=== PATIENT | male | born 1950 | race Caucasian/White ===

== ENCOUNTER 2019-01-20 14:48 | Inpatient (IN) | payer MEDICARE, MEDICAID ==
[~2019-01-20] VITALS: Ht 177.8 cm; Wt 98.9 kg
[2019-01-20] VITALS (8 sets, daily range): BP systolic 92–127; BP diastolic 43–101
[~2019-01-20 14:48] MED LIST: ALBU2.5V13 NAS; ASPI-1158 PO; ATOR10TA69 PO; BENA5TAB6 PO; BUME2TAB3 MT; CARV6.2548 PO; CLOT15CR8 TOP; DOCU-276 PO; FLUT16SP15 INH; FLUT1DIS3 INH; FURO40TA5 PO; ISON300T19 PO; LEVO75TA7 PO; LORA-1083 PO; MIRT-91 PO; OMEP20CA4 PO; PHEN100C12 PO; Rifampin; Rifampin PO; SERT50TA12 PO; TIOT18CA3 INH; TOPI100T37 INH; VALP250S4 PO
[2019-01-20] MEDS ORDERED: SODIUM CHLORIDE 0.9% 1,000 ML IV ONE (15:30)
[2019-01-20 15:51] LABS: BASOPHILS % 0.6 % (0.0-2.0); EOSINOPHILS % 1.4 % (0.0-5.0); HEMATOCRIT. 41.1 % (42.0-52.0); HEMOGLOBIN. 13.8 g/dL (14.0-18.0); LYMPHOCYTES % 17.1 % (20.0-50.0); MEAN CORPUSCULAR HEMOGLOBIN 29.3 pg (28.0-32.0); MEAN PLATELET VOLUME 7.6 fl (7.4-10.4); MONOCYTES % 12.9 % (2.0-8.0); PLATELET 236 x1000/uL (130-400); RED BLOOD CELL COUNT 4.72 mill/uL (4.7-6.1); RED CELL DISTRIBUTION WIDTH 14.9 % (11.6-14.6)
[2019-01-20 15:56] LABS: CHLORIDE 102 mEq/L (98-107)
[2019-01-20 15:57] LABS: PROTHROMBIN TIME 10.3 sec (9.6-11.0)
[2019-01-20 16:00] LABS: ETHANOL BLOOD < 10 mg/dL
[2019-01-20 16:05] LABS: CREATINE KINASE 111 IU/L (39-308)
[2019-01-20] MEDS ORDERED: PHENYTOIN SODIUM 1,000 MG in SODIUM CHLORIDE 0.9% 100 ML IV ONE (17:15)
[2019-01-20] MEDS ORDERED: LORAZEPAM 2MG/ML CPJ IV ONE (17:15)
[2019-01-20 17:40] LABS: CARBAMAZEPINE < 0.5 ug/mL (4-12); PHENOBARBITAL < 2.1 ug/mL (15.0-40.0)
[2019-01-20] MEDS ORDERED: LORAZEPAM 2MG/ML CPJ IV PRN (21:30)
[2019-01-20] MEDS ORDERED: DEXTROSE 50% WATER 50ML SYRINGE IV PRN (21:30)
[2019-01-20] MEDS: SODIUM CHLORIDE 0.9% 1,000 ML IV SCH (22:11)
[2019-01-21] VITALS (19 sets, daily range): BP systolic 93–131; BP diastolic 55–83
[2019-01-21 05:20] LABS: BASOPHILS % 0.5 % (0.0-2.0); EOSINOPHILS % 1.5 % (0.0-5.0); HEMATOCRIT. 41.3 % (42.0-52.0); HEMOGLOBIN. 13.4 g/dL (14.0-18.0); LYMPHOCYTES % 28.3 % (20.0-50.0); MEAN CORPUSCULAR HEMOGLOBIN 28.5 pg (28.0-32.0); MEAN CORPUSCULAR VOLUME 88.2 fL (80.0-94.0); MEAN PLATELET VOLUME 8.2 fl (7.4-10.4); MONOCYTES % 14.4 % (2.0-8.0); NEUTROPHILS % 55.3 % (40.0-76.0); PLATELET 237 x1000/uL (130-400); RED BLOOD CELL COUNT 4.68 mill/uL (4.7-6.1); RED CELL DISTRIBUTION WIDTH 14.6 % (11.6-14.6)
[2019-01-21 05:25] LABS: CHLORIDE 105 mEq/L (98-107)
[2019-01-21] MEDS: INSULIN LISPRO 100 UNITS/ML SUBCUT SCH ×4 (07:50→21:00)
[2019-01-21] MEDS: BLOOD SUGAR DIAGNOSTIC STRIP TEST SCH ×4 (07:50→21:30)
[2019-01-21] MEDS ORDERED: MIRA50TA PO (09:30)
[2019-01-21] MEDS ORDERED: SPIR25TA6 PO (09:30)
[2019-01-21] MEDS ORDERED: GLIP2.5T3 PO (09:30)
[2019-01-21] MEDS ORDERED: ATOR40TA70 PO (09:30)
[2019-01-21] MEDS ORDERED: OMEP20TA2 PO (09:31)
[2019-01-21] MEDS ORDERED: ASPI-1159 PO (09:31)
[2019-01-21] MEDS ORDERED: CARV3.1242 PO (09:31)
[2019-01-21] MEDS ORDERED: XALAO EACHEYE (09:31)
[2019-01-21] MEDS ORDERED: SENN1TAB8 PO (09:31)
[2019-01-21] MEDS ORDERED: HYDR-3735 GT (09:31)
[2019-01-21] MEDS ORDERED: MIRT30TA PO (09:31)
[2019-01-21] MEDS ORDERED: POTA20TA82 PO (09:31)
[2019-01-21] MEDS ORDERED: FINA5TAB3 PO (09:31)
[2019-01-21] MEDS ORDERED: LEVO112T7 PO (09:31)
[2019-01-21] MEDS ORDERED: LACO100T2 PO (09:31)
[2019-01-21] MEDS: ASPIRIN 81MG TABLET PO SCH (10:32)
[2019-01-21] MEDS: FAMOTIDINE 20MG/2ML VIAL IV SCH (10:32)
[2019-01-21] MEDS: LEVOTHYROXINE SODIUM 112MCG TABLET PO SCH (10:32)
[2019-01-21] MEDS: SODIUM CHLORIDE 0.9% 1,000 ML IV SCH (10:32)
[2019-01-21] MEDS: POTASSIUM CHLORIDE 20MEQ TABLET SR PO SCH ×2 (10:32→21:40)
[2019-01-21] MEDS: CARVEDILOL 3.125 MG TABLET PO SCH ×2 (10:33→21:41)
[2019-01-21] MEDS: BUMETANIDE 1MG TABLET PO SCH ×2 (11:00→21:56)
[2019-01-21] MEDS: GLIPIZIDE XL 2.5MG TABLET PO SCH (13:49)
[2019-01-21] MEDS ORDERED: ATORVASTATIN CALCIUM 40MG TABLET PO SCH (21:00)
[2019-01-21] MEDS ORDERED: PHENYTOIN SODIUM EXTENDED 100MG CAPSULE PO SCH (21:00)
[2019-01-21] MEDS: LATANOPROST 0.005% OPHTH DROPS 2.5ML EACHEYE SCH ×2 (21:00→22:17)
[2019-01-22 04:00] VITALS: BP 104/68
[2019-01-22] MEDS: BLOOD SUGAR DIAGNOSTIC STRIP TEST SCH ×2 (07:22→12:40)
[2019-01-22] MEDS: INSULIN LISPRO 100 UNITS/ML SUBCUT SCH ×2 (07:23→13:10)
[2019-01-22 08:00] VITALS: BP 102/67
[2019-01-22] MEDS: POTASSIUM CHLORIDE 20MEQ TABLET SR PO SCH (09:13)
[2019-01-22] MEDS: BUMETANIDE 1MG TABLET PO SCH (09:13)
[2019-01-22] MEDS: LEVOTHYROXINE SODIUM 112MCG TABLET PO SCH (09:13)
[2019-01-22] MEDS: ASPIRIN 81MG TABLET PO SCH (09:13)
[2019-01-22] MEDS: GLIPIZIDE XL 2.5MG TABLET PO SCH (09:14)
[2019-01-22] MEDS: CARVEDILOL 3.125 MG TABLET PO SCH (09:14)
[2019-01-22] MEDS: FAMOTIDINE 20MG/2ML VIAL IV SCH (09:14)
[2019-01-22 12:00] VITALS: BP 109/68
[2019-01-22 16:00] VITALS: BP 104/64
[2019-01-22 17:30] VITALS: BP 111/74
[2019-01-22] MEDS ORDERED: PHEN100C4 MT (17:48)
[2019-01-22] MEDS ORDERED: PHEN100C4 PO (17:56)
== END 2019-01-22 19:30 | disposition home or self-care (01) | DRG 101 ==
LOC: ER 14:48 → CVICU 19:28 → ENRESERV 19:34 → EDBEDREQTM 19:36 → EDBEDREQ 19:36 → 7WST 01-21 11:20
PROVIDERS: ADMIT Internal Medicine; ATTEND Internal Medicine
DX: G40.901 Epilepsy, unspecified, not intractable, with status epilepticus (principal); I69.354 Hemiplegia and hemiparesis following cerebral infarction affecting left non-dominant side; E11.9 Type 2 diabetes mellitus without complications; I10 Essential (primary) hypertension; K74.60 Unspecified cirrhosis of liver; E78.5 Hyperlipidemia, unspecified; E78.00 Pure hypercholesterolemia, unspecified; H54.62 Unqualified visual loss, left eye, normal vision right eye; J45.909 Unspecified asthma, uncomplicated; F32.9 Major depressive disorder, single episode, unspecified; R26.2 Difficulty in walking, not elsewhere classified; Z88.8 Allergy status to other drugs, medicaments and biological substances; Z79.82 Long term (current) use of aspirin; Z86.011 Personal history of benign neoplasm of the brain; Z91.14 Patient's other noncompliance with medication regimen; Z79.899 Other long term (current) drug therapy
CPT/HCPCS: 36415; 70551; 71045; 80048; 80156; 80165; 80184; 80185; 80320; 82140; 82550; 82962; 83605; 84484; 93005; 93970; J1165; J2060; J3490; J7030; J7050; G0480

== ENCOUNTER 2019-06-27 01:17 | Emergency (ER) | payer MEDICARE, MEDICAID ==
[~2019-06-27] VITALS: Ht 177.8 cm; Wt 93.0 kg
[~2019-06-27 01:17] MED LIST changes: -ALBU2.5V13 NAS; -ASPI-1158 PO; +ASPI-1393 PO; -ATOR10TA69 PO; +ATOR40TA70 PO; -BENA5TAB6 PO; -BUME2TAB3 MT; +BUME2TAB7 MT; +CARV3.1242 PO; -CARV6.2548 PO; -CLOT15CR8 TOP; -DOCU-276 PO; +FINA5TAB3 PO; -FLUT16SP15 INH; -FURO40TA5 PO; +GLIP2.5T3 PO; +HYDR-3735 GT; -ISON300T19 PO; +LACO100T2 PO; +LEVO112T7 PO; -LEVO75TA7 PO; -LORA-1083 PO; +MIRA50TA PO; -MIRT-91 PO; +MIRT30TA PO; -OMEP20CA4 PO; +OMEP20TA2 PO; -PHEN100C12 PO; +PHEN100C4 MT; +PHEN100C4 PO; +POTA20TA82 PO; -Rifampin; -Rifampin PO; +SENN-251 PO; -SERT50TA12 PO; +SPIR25TA6 PO; -TOPI100T37 INH; +XALAO EACHEYE
[2019-06-27] MEDS ORDERED: ASPIRIN 81MG TABLET PO ONE (03:45)
[2019-06-27 04:00] LABS: BASOPHILS % 0.7 % (0.0-2.0); EOSINOPHILS % 1.1 % (0.0-5.0); HEMATOCRIT. 39.7 % (42.0-52.0); HEMOGLOBIN. 13.1 g/dL (14.0-18.0); LYMPHOCYTES % 18.8 % (20.0-50.0); MEAN CORPUSCULAR VOLUME 87.5 fL (80.0-94.0); MEAN PLATELET VOLUME 7.8 fl (7.4-10.4); NEUTROPHILS % 67.4 % (40.0-76.0); PLATELET 230 x1000/uL (130-400); RED BLOOD CELL COUNT 4.54 mill/uL (4.7-6.1); RED CELL DISTRIBUTION WIDTH 14.3 % (11.6-14.6)
[2019-06-27 04:07] LABS: CHLORIDE 102 mEq/L (98-107)
[2019-06-27] MEDS ORDERED: HYDROCODONE/ACETAMINOPHEN 5/325MG TABLET PO ONE (05:45)
[2019-06-27 10:11] LABS: CLARITY URINE CLEAR (CLEAR); COLOR URINE YELLOW (YELLOW); KETONES URINE NEGATIVE (NEGATIVE); LEUKOCYTE ESTERASE URINE NEGATIVE (NEGATIVE); NITRITE URINE NEGATIVE (NEGATIVE); OCCULT BLOOD URINE NEGATIVE (NEGATIVE); PH URINE 6.5 (4.5-8.0); PROTEIN URINE NEGATIVE (NEGATIVE); SPECIFIC GRAVITY URINE 1.015 (1.005-1.030)
[2019-06-27 13:35] VITALS: BP 115/78
== END 2019-06-27 18:09 | disposition left against medical advice (07) ==
LOC: ER 02:11 → CANBEDREQ 10:28 → ER 18:09
DX: R07.89 Other chest pain (principal); R10.84 Generalized abdominal pain; E11.9 Type 2 diabetes mellitus without complications; G40.909 Epilepsy, unspecified, not intractable, without status epilepticus; J44.9 Chronic obstructive pulmonary disease, unspecified; H54.62 Unqualified visual loss, left eye, normal vision right eye; Z86.011 Personal history of benign neoplasm of the brain; Z88.5 Allergy status to narcotic agent; Z79.82 Long term (current) use of aspirin
CPT/HCPCS: 36415; 71045; 74018; 81003; 83880; 84484; 93005; 99284

== ENCOUNTER 2020-12-08 05:49 | Emergency (ER) | payer MEDICARE, MEDICAID ==
[~2020-12-08] VITALS: Ht 167.6 cm; Wt 100.0 kg
[~2020-12-08 05:49] MED LIST changes: -ASPI-1393 PO; +ASPI-1497 PO; +MIRT-111 PO; -MIRT30TA PO
[2020-12-08 06:54] LABS: CHLORIDE 103 mEq/L (98-107)
[2020-12-08 07:00] LABS: ETHANOL BLOOD < 10 mg/dL
[2020-12-08 07:04] LABS: HEMATOCRIT. 38.4 % (42.0-52.0); HEMOGLOBIN. 12.2 g/dL (14.0-18.0); MEAN CORPUSCULAR HEMOGLOBIN 25.8 pg (28.0-32.0); MEAN CORPUSCULAR VOLUME 81.4 fL (80.0-94.0); RED BLOOD CELL COUNT 4.72 mill/uL (4.7-6.1); RED CELL DISTRIBUTION WIDTH 15.8 % (11.6-14.6)
[2020-12-08 07:42] LABS: PLATELET 197 x1000/uL (130-400); PLATELET ESTIMATE NORMAL
[2020-12-08 07:42] LABS: CLARITY URINE CLEAR (CLEAR); COLOR URINE YELLOW (YELLOW); KETONES URINE NEGATIVE (NEGATIVE); LEUKOCYTE ESTERASE URINE NEGATIVE (NEGATIVE); NITRITE URINE NEGATIVE (NEGATIVE); OCCULT BLOOD URINE NEGATIVE (NEGATIVE); PROTEIN URINE NEGATIVE (NEGATIVE); UROBILINOGEN URINE 0.2 E.U./dL (0.2-1.0)
[2020-12-08 07:54] LABS: *AMPHETAMINES SCREEN URINE NEGATIVE (NEGATIVE); *BARBITURATES SCREEN URINE NEGATIVE (NEGATIVE); *BENZODIAZEPINES SCREEN URINE PRESUMTIVE POSITIVE (NEGATIVE)
[2020-12-08 07:55] LABS: *COCAINE SCREEN URINE NEGATIVE (NEGATIVE); METHADONE URINE SCREEN NEGATIVE (NEGATIVE); OPIATES URINE SCREEN NEGATIVE (NEGATIVE); PHENCYCLIDINE URINE SCREEN NEGATIVE (NEGATIVE)
[2020-12-08 07:56] LABS: CANNABINOID URINE SCREEN NEGATIVE (NEGATIVE)
[2020-12-08] MEDS ORDERED: SODIUM CHLORIDE 0.9% 1,000 ML IV ONE (10:30)
[2020-12-08 13:00] VITALS: BP 131/88
== END 2020-12-08 13:43 | disposition left against medical advice (07) ==
LOC: ER 05:49
DX: R56.9 Unspecified convulsions (principal); E87.2 Acidosis; J45.909 Unspecified asthma, uncomplicated; I10 Essential (primary) hypertension; Z79.82 Long term (current) use of aspirin
CPT/HCPCS: 36415; 71045; 80053; 80305; 80320; 81003; 82140; 82962; 83605; 84443; 85025; 93005; 99285; J7030; G0480

== ENCOUNTER 2021-08-18 19:09 | Emergency (ER) | payer MEDICARE, MEDICAID ==
[~2021-08-18] VITALS: Ht 172.7 cm; Wt 82.0 kg
[2021-08-18] MEDS ORDERED: CYCL10TA7 MT (22:15)
[2021-08-18] MEDS ORDERED: KETOROLAC 60MG/2ML VIAL IM ONE (22:15)
[2021-08-18] MEDS ORDERED: IBUP-2028 MT (22:15)
[2021-08-19 00:03] VITALS: BP 145/79
== END 2021-08-19 00:05 | disposition home or self-care (01) ==
LOC: ER 19:09
DX: M54.50 Low back pain, unspecified (principal); G89.29 Other chronic pain; E11.9 Type 2 diabetes mellitus without complications; I10 Essential (primary) hypertension; J45.909 Unspecified asthma, uncomplicated; J44.9 Chronic obstructive pulmonary disease, unspecified; Z88.8 Allergy status to other drugs, medicaments and biological substances; Z88.5 Allergy status to narcotic agent
CPT/HCPCS: 72100; 96372; 99283; J1885

== ENCOUNTER 2022-04-16 00:20 | Inpatient (IN) | payer MEDICARE, MEDICAID ==
[2022-04-16] VITALS (22 sets, daily range): BP systolic 90–131; BP diastolic 34–81
[~2022-04-16] VITALS: Ht 172.7 cm; Wt 135.2 kg
[~2022-04-16 00:20] MED LIST changes: +CYCL10TA21 MT; +IBUP-2028 MT; -OMEP20TA2 PO; +OMEP20TA23 PO; +POTA-205 PO; -POTA20TA82 PO
[2022-04-16 00:58] LABS: BASOPHILS % 0.3 % (0.0-2.0); EOSINOPHILS % 0.6 % (0.0-5.0); HEMATOCRIT. 39.4 % (42.0-52.0); HEMOGLOBIN. 12.8 g/dL (14.0-18.0); LYMPHOCYTES % 34.3 % (20.0-50.0); MEAN CORPUSCULAR HEMOGLOBIN 28.1 pg (28.0-32.0); MEAN CORPUSCULAR VOLUME 86.4 fL (80.0-94.0); MONOCYTES % 9.5 % (2.0-8.0); NEUTROPHILS % 55.3 % (40.0-76.0); PLATELET 160 x1000/uL (130-400); RED BLOOD CELL COUNT 4.57 mill/uL (4.7-6.1); RED CELL DISTRIBUTION WIDTH 15.6 % (11.6-14.6)
[2022-04-16] MEDS ORDERED: SODIUM BICARBONATE 8.4% 1 MEQ/ML 50ML SYR IV ONE ×2 (01:00)
[2022-04-16] MEDS ORDERED: DOPAMINE 400MG/250ML PREMIX 250 ML IV ONE (01:00)
[2022-04-16] MEDS ORDERED: CALCIUM CHLORIDE 1GM/10ML SYR IV ONE (01:00)
[2022-04-16 01:24] LABS: CHLORIDE 108 mEq/L (98-107)
[2022-04-16] MEDS ORDERED: ONDANSETRON HCL 4MG/2ML INJ IV ONE (03:15)
[2022-04-16 03:39] LABS: INR 1.1; PARTIAL THROMBOPLASTIN TIME < 21.0 sec (23.4-31.0); PROTHROMBIN TIME 11.4 sec (9.6-11.0)
[2022-04-16] MEDS ORDERED: DOPAMINE 400MG/250ML PREMIX 250 ML IV STA (05:09)
[2022-04-16] MEDS ORDERED: EPINEPHRINE 5 MG in SODIUM CHLORIDE 0.9% 245 ML IV STA (05:09)
[2022-04-16] MEDS ORDERED: ACETAMINOPHEN 325MG TABLET PO PRN (05:15)
[2022-04-16] MEDS ORDERED: ONDANSETRON HCL 4MG/2ML INJ IV PRN (05:15)
[2022-04-16] MEDS ORDERED: HYDROCODONE/ACETAMINOPHEN 5/325MG TABLET PO PRN (05:15)
[2022-04-16] MEDS ORDERED: MAGNESIUM/ALUMINUM HYDROXIDE/SIMETHICONE 30ML UDC PO PRN (05:15)
[2022-04-16] MEDS ORDERED: DOCUSATE SODIUM 100MG CAPSULE PO PRN (05:15)
[2022-04-16] MEDS ORDERED: GUAIFENESIN 200MG/10ML SUGAR FREE UDC PO PRN (05:15)
[2022-04-16] MEDS ORDERED: NALOXONE HCL 0.4MG/ML VIAL IV PRN (05:30)
[2022-04-16] MEDS: SODIUM CHLORIDE 0.45% 1,000 ML IV SCH ×2 (05:36→17:11)
[2022-04-16] MEDS ORDERED: EPINEPHRINE 5 MG in SODIUM CHLORIDE 0.9% 245 ML IV NR (06:15)
[2022-04-16] MEDS ORDERED: MIDAZOLAM HCL 2 MG/2 ML VIAL ONE (07:28)
[2022-04-16] MEDS ORDERED: LIDOCAINE HCL/PF 2% 20MG/ML 5 ML/VIAL ONE (07:29)
[2022-04-16] MEDS ORDERED: FENTANYL CITRATE/PF 50MCG/ML 2ML VIAL ONE (07:29)
[2022-04-16] MEDS ORDERED: ATROPINE SULFATE 1MG/10ML SYR ONE (07:31)
[2022-04-16] MEDS ORDERED: ATROPINE SULFATE 1MG/10ML SYR IV PRN (08:15)
[2022-04-16] MEDS ORDERED: IPRATROPIUM/ALBUTEROL 0.5-3(2.5)MG/3ML NEB HHN PRN (12:45)
[2022-04-16] MEDS: ENOXAPARIN 40MG/0.4ML SYR SUBCUT SCH (17:10)
[2022-04-16] MEDS: LEVOTHYROXINE SODIUM 112MCG TABLET PO SCH (17:10)
[2022-04-16] MEDS: PHENYTOIN SODIUM EXTENDED 100MG CAPSULE PO SCH ×2 (17:10→17:13)
[2022-04-16] MEDS: LATANOPROST 0.005% OPHTH DROPS 2.5ML EACHEYE SCH (21:21)
[2022-04-16] MEDS: FINASTERIDE 5MG TABLET PO SCH (21:21)
[2022-04-17] VITALS (63 sets, daily range): BP systolic 78–164; BP diastolic 19–117
[2022-04-17] MEDS: SODIUM CHLORIDE 0.45% 1,000 ML IV SCH (05:39)
[2022-04-17 06:14] LABS: BASOPHILS % 0.2 % (0.0-2.0); EOSINOPHILS % 0.7 % (0.0-5.0); HEMATOCRIT. 35.3 % (42.0-52.0); HEMOGLOBIN. 11.8 g/dL (14.0-18.0); LYMPHOCYTES % 24.1 % (20.0-50.0); MEAN CORPUSCULAR HEMOGLOBIN 28.3 pg (28.0-32.0); MEAN CORPUSCULAR VOLUME 84.6 fL (80.0-94.0); MEAN PLATELET VOLUME 9.3 fl (7.4-10.4); MONOCYTES % 12.9 % (2.0-8.0); NEUTROPHILS % 62.1 % (40.0-76.0); PLATELET 141 x1000/uL (130-400); RED BLOOD CELL COUNT 4.17 mill/uL (4.7-6.1); RED CELL DISTRIBUTION WIDTH 15.9 % (11.6-14.6)
[2022-04-17 06:34] LABS: CHLORIDE 101 mEq/L (98-107)
[2022-04-17] MEDS ORDERED: MIDAZOLAM HCL 2 MG/2 ML VIAL ONE ×2 (07:43→08:30)
[2022-04-17] MEDS ORDERED: IODIXANOL 320MG/ML 100 ML BOTTLE IV ONE (07:44)
[2022-04-17] MEDS ORDERED: LIDOCAINE HCL/PF 2% 20MG/ML 5 ML/VIAL ONE (07:44)
[2022-04-17] MEDS ORDERED: FENTANYL CITRATE/PF 50MCG/ML 2ML VIAL ONE ×2 (07:45→08:30)
[2022-04-17] MEDS ORDERED: GENTAMICIN/NS IRRIGATION 500 ML IR ONE (07:48)
[2022-04-17] MEDS ORDERED: CEFAZOLIN 1000MG PREMIX 50 ML IV ONE ×2 (07:52→07:54)
[2022-04-17] MEDS: ENOXAPARIN 40MG/0.4ML SYR SUBCUT SCH (09:00)
[2022-04-17] MEDS: FUROSEMIDE 40MG/4ML VIAL IVP SCH (10:47)
[2022-04-17] MEDS: PHENYTOIN SODIUM EXTENDED 100MG CAPSULE PO SCH ×3 (10:47→17:24)
[2022-04-17] MEDS: LEVOTHYROXINE SODIUM 112MCG TABLET PO SCH (10:48)
[2022-04-17] MEDS: ATORVASTATIN CALCIUM 40MG TABLET PO SCH (10:48)
[2022-04-17] MEDS: SPIRONOLACTONE 25MG TABLET PO SCH (10:48)
[2022-04-17] MEDS: CEFAZOLIN 1000MG PREMIX 50 ML IV SCH ×2 (13:12→21:32)
[2022-04-17] MEDS: POTASSIUM CHLORIDE 20MEQ TABLET SR PO SCH (13:13)
[2022-04-17] MEDS ORDERED: CEFAZOLIN SODIUM 1000MG/VIAL IV SCH (14:00)
[2022-04-17] MEDS ORDERED: PHENYTOIN SODIUM 500 MG in SODIUM CHLORIDE 0.9% 50 ML IV NR (14:30)
[2022-04-17] MEDS: FINASTERIDE 5MG TABLET PO SCH (21:32)
[2022-04-17] MEDS: ACETAMINOPHEN 325MG TABLET PO PRN (21:32)
[2022-04-17] MEDS: LATANOPROST 0.005% OPHTH DROPS 2.5ML EACHEYE SCH (21:33)
[2022-04-18] VITALS (45 sets, daily range): BP systolic 77–140; BP diastolic 37–84
[2022-04-18] MEDS: PHENYTOIN SODIUM EXTENDED 100MG CAPSULE PO SCH ×3 (01:08→22:05)
[2022-04-18] MEDS: SODIUM CHLORIDE 0.45% 1,000 ML IV SCH ×2 (01:13→10:35)
[2022-04-18] MEDS: CEFAZOLIN 1000MG PREMIX 50 ML IV SCH ×3 (04:18→22:07)
[2022-04-18] MEDS: TRAMADOL 50MG TABLET PO PRN ×2 (06:51→22:07)
[2022-04-18] MEDS: POTASSIUM CHLORIDE 20MEQ TABLET SR PO SCH (08:31)
[2022-04-18] MEDS: ENOXAPARIN 40MG/0.4ML SYR SUBCUT SCH ×2 (08:31→22:06)
[2022-04-18] MEDS: FUROSEMIDE 40MG/4ML VIAL IVP SCH (08:31)
[2022-04-18] MEDS: ATORVASTATIN CALCIUM 40MG TABLET PO SCH (08:31)
[2022-04-18] MEDS: LEVOTHYROXINE SODIUM 112MCG TABLET PO SCH (08:32)
[2022-04-18] MEDS: SPIRONOLACTONE 25MG TABLET PO SCH (08:38)
[2022-04-18] MEDS: SODIUM CHLORIDE 0.9% 1,000 ML IV SCH (18:56)
[2022-04-18] MEDS: LATANOPROST 0.005% OPHTH DROPS 2.5ML EACHEYE SCH (22:05)
[2022-04-18] MEDS: FINASTERIDE 5MG TABLET PO SCH (22:07)
[2022-04-19] VITALS (17 sets, daily range): BP systolic 77–137; BP diastolic 40–78
[2022-04-19] MEDS: CEFAZOLIN 1000MG PREMIX 50 ML IV SCH (03:36)
[2022-04-19] MEDS: FUROSEMIDE 40MG/4ML VIAL IVP SCH (08:17)
[2022-04-19] MEDS: PHENYTOIN SODIUM EXTENDED 100MG CAPSULE PO SCH (08:17)
[2022-04-19] MEDS: POTASSIUM CHLORIDE 20MEQ TABLET SR PO SCH (08:17)
[2022-04-19] MEDS: LEVOTHYROXINE SODIUM 112MCG TABLET PO SCH (08:17)
[2022-04-19] MEDS: ATORVASTATIN CALCIUM 40MG TABLET PO SCH (08:18)
[2022-04-19] MEDS: SODIUM CHLORIDE 0.9% 1,000 ML IV SCH (08:18)
[2022-04-19] MEDS: SPIRONOLACTONE 25MG TABLET PO SCH (08:18)
[2022-04-19] MEDS: ENOXAPARIN 40MG/0.4ML SYR SUBCUT SCH (08:18)
[2022-04-19] MEDS ORDERED: POTASSIUM CHLORIDE 20MEQ TABLET SR PO SCH (10:00)
[2022-04-19] MEDS: ACETAMINOPHEN 325MG TABLET PO PRN (12:39)
[2022-04-19] MEDS ORDERED: PHENYTOIN SODIUM EXTENDED 100MG CAPSULE PO SCH (13:30)
== END 2022-04-19 17:00 | disposition home or self-care (01) | DRG 242 ==
LOC: ER 00:24 → CVICU 02:42 → ER 07:52
PROVIDERS: ADMIT Hospitalist; ATTEND Hospitalist
PROC: 5A09357 Assistance with Respiratory Ventilation, Less than 24 Consecutive Hours, Continuous Positive Airway Pressure (ICD-10-PCS; 2022-04-16)
PROC: 0JH606Z Insertion of Pacemaker, Dual Chamber into Chest Subcutaneous Tissue and Fascia, Open Approach (ICD-10-PCS; principal; 2022-04-17)
PROC: 02H60JZ Insertion of Pacemaker Lead into Right Atrium, Open Approach (ICD-10-PCS; 2022-04-17)
PROC: 02HK0JZ Insertion of Pacemaker Lead into Right Ventricle, Open Approach (ICD-10-PCS; 2022-04-17)
PROC: 5A09357 Assistance with Respiratory Ventilation, Less than 24 Consecutive Hours, Continuous Positive Airway Pressure (ICD-10-PCS; 2022-04-17)
PROC: 5A09357 Assistance with Respiratory Ventilation, Less than 24 Consecutive Hours, Continuous Positive Airway Pressure (ICD-10-PCS; 2022-04-18)
PROC: 4A00X4Z Measurement of Central Nervous Electrical Activity, External Approach (ICD-10-PCS; 2022-04-18)
DX: I44.2 Atrioventricular block, complete (principal); I50.33 Acute on chronic diastolic (congestive) heart failure; G93.40 Encephalopathy, unspecified; E44.1 Mild protein-calorie malnutrition; E87.2 Acidosis; J98.11 Atelectasis; Z68.42 Body mass index [BMI] 45.0-49.9, adult; G47.33 Obstructive sleep apnea (adult) (pediatric); E11.9 Type 2 diabetes mellitus without complications; G40.909 Epilepsy, unspecified, not intractable, without status epilepticus; E87.6 Hypokalemia; I11.0 Hypertensive heart disease with heart failure; E03.9 Hypothyroidism, unspecified; E83.52 Hypercalcemia; E66.01 Morbid (severe) obesity due to excess calories; Z20.822 Contact with and (suspected) exposure to COVID-19; E78.5 Hyperlipidemia, unspecified; H54.7 Unspecified visual loss; J45.909 Unspecified asthma, uncomplicated; Z86.011 Personal history of benign neoplasm of the brain; Z88.5 Allergy status to narcotic agent; Z88.8 Allergy status to other drugs, medicaments and biological substances; Z86.73 Personal history of transient ischemic attack (TIA), and cerebral infarction without residual deficits
CPT/HCPCS: 33208; 33210; 36415; 71045; 75820; 80048; 80053; 80185; 82330; 83605; 83735; 83880; 83970; 84443; 84484; 85025; 87426; 93005; 93306; 93970; 94660; 95816; 99291; C1785; C1893; C1898; J0461; J0690; J1165; J1265; J1644; J1650; J1940; J2250; J2405; J3010; J3490; J7030; J7050; L1830; Q9967; C1751

== ENCOUNTER 2022-12-03 22:51 | Inpatient (IN) | payer MEDICARE, MEDICAID ==
[~2022-12-03] VITALS: Ht 170.2 cm; Wt 99.0 kg
[2022-12-03] MEDS ORDERED: IOHEXOL-350 100 ML BOTTLE ONE (23:42)
[2022-12-04 00:02] LABS: BASOPHILS % 0.2 % (0.0-2.0); EOSINOPHILS % 0.8 % (0.0-5.0); HEMATOCRIT. 39.2 % (42.0-52.0); HEMOGLOBIN. 13.1 g/dL (14.0-18.0); LYMPHOCYTES % 18.5 % (20.0-50.0); MEAN CORPUSCULAR HEMOGLOBIN 29.9 pg (28.0-32.0); MEAN CORPUSCULAR VOLUME 89.2 fL (80.0-94.0); NEUTROPHILS % 65.5 % (40.0-76.0); PLATELET 196 x1000/uL (130-400); RED BLOOD CELL COUNT 4.39 mill/uL (4.7-6.1); RED CELL DISTRIBUTION WIDTH 14.6 % (11.6-14.6)
[2022-12-04] MEDS ORDERED: ASPIRIN 325MG EC TABLET PO ONE (00:45)
[2022-12-04 01:04] LABS: CHLORIDE 101 mEq/L (98-107)
[2022-12-04 01:16] LABS: ETHANOL BLOOD < 10 mg/dL
[2022-12-04] MEDS ORDERED: ONDANSETRON HCL 4MG/2ML INJ IV PRN (09:45)
[2022-12-04] MEDS ORDERED: DIPHENHYDRAMINE 50MG/ML VIAL IV PRN (09:45)
[2022-12-04] MEDS ORDERED: ACETAMINOPHEN 325MG TABLET PO PRN (09:45)
[2022-12-04] MEDS ORDERED: IPRATROPIUM/ALBUTEROL 0.5-3(2.5)MG/3ML NEB HHN PRN (09:45)
[2022-12-04] MEDS ORDERED: CLONIDINE 0.1MG TABLET PO PRN (09:45)
[2022-12-04 12:00] VITALS: BP_SYST 112; BP_SYST 117; BP_DIAS 79; BP_DIAS 83
[2022-12-04 16:00] VITALS: BP 100/73
[2022-12-04] MEDS: ENOXAPARIN 30MG/0.3ML SYR SUBCUT SCH (18:38)
[2022-12-04 20:00] VITALS: BP 128/77
[2022-12-05] VITALS: BP 120/76
[2022-12-05 04:00] VITALS: BP 104/79
[2022-12-05] MEDS: ENOXAPARIN 30MG/0.3ML SYR SUBCUT SCH ×2 (06:18→18:51)
[2022-12-05 07:30] LABS: BASOPHILS % 0.4 % (0.0-2.0); EOSINOPHILS % 2.8 % (0.0-5.0); HEMATOCRIT. 41.9 % (42.0-52.0); HEMOGLOBIN. 13.7 g/dL (14.0-18.0); LYMPHOCYTES % 39.4 % (20.0-50.0); MEAN CORPUSCULAR HEMOGLOBIN 29.7 pg (28.0-32.0); MEAN CORPUSCULAR VOLUME 90.7 fL (80.0-94.0); MEAN PLATELET VOLUME 8.6 fl (7.4-10.4); MONOCYTES % 13.5 % (2.0-8.0); NEUTROPHILS % 43.9 % (40.0-76.0); PLATELET 194 x1000/uL (130-400); RED BLOOD CELL COUNT 4.62 mill/uL (4.7-6.1); RED CELL DISTRIBUTION WIDTH 14.6 % (11.6-14.6)
[2022-12-05 07:50] LABS: CHLORIDE 105 mEq/L (98-107)
[2022-12-05 08:10] VITALS: BP 110/74
[2022-12-05 11:48] VITALS: BP 117/76
[2022-12-05 15:57] VITALS: BP 109/74
[2022-12-05] MEDS: ASPIRIN 81MG TABLET PO SCH (18:50)
[2022-12-05 20:00] VITALS: BP 120/81
[2022-12-05] MEDS: LEVETIRACETAM 500MG TABLET PO SCH (21:00)
[2022-12-05] MEDS ORDERED: ATORVASTATIN CALCIUM 20MG TABLET PO SCH (21:00)
[2022-12-06] VITALS: BP 119/74
[2022-12-06 04:00] VITALS: BP 111/49
[2022-12-06] MEDS: ENOXAPARIN 30MG/0.3ML SYR SUBCUT SCH (06:49)
[2022-12-06 07:00] LABS: BASOPHILS % 0.5 % (0.0-2.0); EOSINOPHILS % 3.3 % (0.0-5.0); HEMATOCRIT. 43.7 % (42.0-52.0); HEMOGLOBIN. 14.6 g/dL (14.0-18.0); LYMPHOCYTES % 39.3 % (20.0-50.0); MEAN CORPUSCULAR HEMOGLOBIN 29.6 pg (28.0-32.0); MEAN CORPUSCULAR VOLUME 89.1 fL (80.0-94.0); MONOCYTES % 13.5 % (2.0-8.0); NEUTROPHILS % 43.4 % (40.0-76.0); RED BLOOD CELL COUNT 4.91 mill/uL (4.7-6.1); RED CELL DISTRIBUTION WIDTH 14.6 % (11.6-14.6)
[2022-12-06 08:01] VITALS: BP 118/64
[2022-12-06] MEDS: ASPIRIN 81MG TABLET PO SCH (08:16)
[2022-12-06] MEDS: LEVETIRACETAM 500MG TABLET PO SCH (08:21)
[2022-12-06] MEDS ORDERED: NON FORMULARY PATIENT HOME MED XX SCH (11:30)
[2022-12-06 11:56] VITALS: BP 127/89
[2022-12-06] MEDS ORDERED: ASPI-1160 PO (12:19)
[2022-12-06] MEDS ORDERED: LACO200T2 PO (12:19)
[2022-12-06] MEDS ORDERED: DIVAL250 PO (12:19)
[2022-12-06] MEDS ORDERED: CLOB10TA17 PO (12:24)
[2022-12-06] MEDS ORDERED: DIVALPROEX SODIUM 250MG ER TABLET PO SCH (14:00)
[2022-12-06] MEDS ORDERED: LACOSAMIDE 100 MG TABLET PO SCH (14:00)
== END 2022-12-06 14:54 | disposition home or self-care (01) | DRG 100 ==
LOC: ER 22:51 → MICUSO 12-04 02:38 → EDBEDREQ 12-04 03:12 → EDBEDREQSVC 12-04 08:03 → 3WST 12-04 10:24
PROVIDERS: ADMIT Internal Medicine; ATTEND Internal Medicine
PROC: 4A00X4Z Measurement of Central Nervous Electrical Activity, External Approach (ICD-10-PCS; principal; 2022-12-05)
DX: G40.909 Epilepsy, unspecified, not intractable, without status epilepticus (principal); G92.8 Other toxic encephalopathy; G45.9 Transient cerebral ischemic attack, unspecified; E11.9 Type 2 diabetes mellitus without complications; I10 Essential (primary) hypertension; H54.61 Unqualified visual loss, right eye, normal vision left eye; H54.62 Unqualified visual loss, left eye, normal vision right eye; Z79.51 Long term (current) use of inhaled steroids; Z95.0 Presence of cardiac pacemaker
CPT/HCPCS: 36415; 70496; 70498; 70551; 71045; 80048; 80053; 80061; 80320; 80339; 82962; 85025; 92610; 93005; 93970; 95816; 97162; 99291; J1650; Q9967; G0480

== ENCOUNTER 2024-03-31 22:12 | Emergency (ER) | payer MEDICAID ==
[~2024-03-31] VITALS: Ht 177.8 cm; Wt 95.0 kg
[~2024-03-31 22:12] MED LIST changes: +ASPI-1160 PO; -ASPI-1497 PO; +ATOR-2 PO; -ATOR40TA70 PO; -BUME2TAB7 MT; +BUME2TAB7 PO; -CARV3.1242 PO; +CLOB10TA17 PO; +DIVA-18 PO; +DIVAL250 PO; +DOCU-150 PO; +ESCI-7 PO; +FINA5TAB11 PO; -FINA5TAB3 PO; -FLUT1DIS3 INH; -GLIP2.5T3 PO; -HYDR-3735 GT; -IBUP-2028 MT; -LACO100T2 PO; +LACO200T2 PO; +LEVO112T2 PO; -LEVO112T7 PO; +METF-414 PO; +MIRA25TA PO; -MIRA50TA PO; -MIRT-111 PO; +MIRT45TA83 PO; -OMEP20TA23 PO; -PHEN100C4 MT; -PHEN100C4 PO; -POTA-205 PO; +POTA-354 PO; -SENN-251 PO; -SPIR25TA6 PO; +TAMS-11 PO; -TIOT18CA3 INH; -VALP250S4 PO
[2024-04-01 01:00] LABS: CARBON DIOXIDE 24 mEq/L (21-32)
[2024-04-01 01:01] LABS: CALCIUM 9.2 mg/dL (8.7-10.4)
[2024-04-01 01:02] LABS: BASOPHILS % 0.4 % (0.0-2.0); EOSINOPHILS % 0.4 % (0.0-5.0); HEMATOCRIT. 41.8 % (42.0-52.0); HEMOGLOBIN. 13.3 g/dL (14.0-18.0); LYMPHOCYTES % 19.3 % (20.0-50.0); MEAN CORPUSCULAR HEMOGLOBIN 29.3 pg (28.0-32.0); MEAN CORPUSCULAR HGB CONC 31.9 g/dL (31.0-37.0); MEAN CORPUSCULAR VOLUME 91.8 fL (80.0-94.0); MEAN PLATELET VOLUME 9.7 fl (7.4-10.4); MONOCYTES % 11.5 % (2.0-8.0); NEUTROPHILS % 68.4 % (40.0-76.0); PLATELET 162 x1000/uL (130-400); RED BLOOD CELL COUNT 4.55 mill/uL (4.7-6.1); RED CELL DISTRIBUTION WIDTH 14.6 % (11.6-14.6); WHITE BLOOD COUNT 6.2 x1000/uL (4.5-11.0)
[2024-04-01 01:05] LABS: GLUCOSE 117 mg/dL (70-105); UREA NITROGEN BLOOD 11 mg/dL (9-23)
[2024-04-01 01:06] LABS: LACTIC ACID 2.6 mmol/L (0.4-2.0)
[2024-04-01 01:23] LABS: TROPONIN I HIGH SENSITIVITY < 4 ng/L (3.0-53)
[2024-04-01 01:24] LABS: SODIUM 143 mEq/L (136-145)
[2024-04-01 01:25] LABS: CHLORIDE 111 mEq/L (98-107); POTASSIUM 4.8 mEq/L (3.5-5.1)
[2024-04-01] MEDS ORDERED: ZOLPIDEM TARTRATE 5MG TABLET PO PRN (03:00)
[2024-04-01] MEDS ORDERED: ACETAMINOPHEN 325MG TABLET PO PRN ×2 (03:00)
[2024-04-01] MEDS ORDERED: ONDANSETRON HCL 4MG/2ML INJ IV PRN (03:00)
[2024-04-01] MEDS ORDERED: MAGNESIUM/ALUMINUM HYDROXIDE/SIMETHICONE 30ML UDC PO PRN (03:00)
[2024-04-01] MEDS ORDERED: CLONIDINE 0.1MG TABLET PO PRN (03:00)
[2024-04-01 05:01] VITALS: BP 135/71; RESP 19; TEMP 98.5; O2SAT 100
[2024-04-01] MEDS: SODIUM CHLORIDE 0.9% 3ML FLUSH IVF SCH (06:35)
[2024-04-01] MEDS: LEVOTHYROXINE SODIUM 112MCG TABLET PO SCH (06:36)
[2024-04-01] MEDS ORDERED: NON FORMULARY PATIENT HOME MED PO SCH ×2 (09:00)
[2024-04-01] MEDS: FINASTERIDE 5MG TABLET PO SCH (09:00)
[2024-04-01] MEDS ORDERED: FINASTERIDE 5MG TABLET PO SCH (09:00)
[2024-04-01] MEDS: ASPIRIN 81MG EC TABLET PO SCH (09:00)
[2024-04-01] MEDS: DIVALPROEX SODIUM 250MG ER TABLET PO SCH (09:00)
[2024-04-01] MEDS ORDERED: DIVA500T51 PO (09:31)
[2024-04-01] MEDS ORDERED: DIVA250T45 PO (09:31)
[2024-04-01] MEDS ORDERED: TROS20TA3 PO (09:34)
[2024-04-01] MEDS ORDERED: METO-396 PO (09:34)
[2024-04-01] MEDS ORDERED: DOCU-150 PO (09:34)
[2024-04-01] MEDS: LACOSAMIDE 100MG TABLET PO SCH (09:38)
[2024-04-01 14:54] VITALS: BP 131/80; PULSE 68; TEMP 97.7; O2SAT 97
[2024-04-01 17:08] VITALS: BP 120/71; PULSE 62; RESP 17; TEMP 98.1
[2024-04-01] MEDS ORDERED: LATANOPROST 0.005% OPHTH DROPS 2.5ML BOTHEYE SCH (21:00)
[2024-04-01] MEDS ORDERED: ATORVASTATIN CALCIUM 40MG TABLET PO SCH (21:00)
== END 2024-04-01 17:14 | disposition home or self-care (01) ==
LOC: ER 22:12 → 5WST 04-01 02:32 → UNDOADMIN 04-01 02:32 → EDBEDREQTM 04-01 02:54 → EDBEDREQDT 04-01 02:54 → EDBEDREQ 04-01 02:54 → ER 04-01 17:14 → 5WST 04-02 04:37
DX: G40.909 Epilepsy, unspecified, not intractable, without status epilepticus (principal); G93.41 Metabolic encephalopathy; I69.354 Hemiplegia and hemiparesis following cerebral infarction affecting left non-dominant side; I10 Essential (primary) hypertension; J44.9 Chronic obstructive pulmonary disease, unspecified; N40.0 Benign prostatic hyperplasia without lower urinary tract symptoms; E11.9 Type 2 diabetes mellitus without complications; Z95.0 Presence of cardiac pacemaker; Z91.040 Latex allergy status; Z88.6 Allergy status to analgesic agent; Z88.8 Allergy status to other drugs, medicaments and biological substances; Z98.890 Other specified postprocedural states
CPT/HCPCS: 36415; 71045; 80048; 80165; 80339; 83605; 84484; 85025; 99291

== ENCOUNTER → 2024-10-25 | Emergency (ER) | payer MEDICAID ==
[~2024-10-25] VITALS: Ht 172.7 cm; Wt 85.0 kg
[~2024-10-25] MED LIST changes: -BUME2TAB7 PO; -CLOB10TA17 PO; +CLOB10TA4 PO; -CYCL10TA21 MT; -DIVA-18 PO; +DIVA250T45 PO; +DIVA500T51 PO; -DIVAL250 PO; -DOCU-150 PO; +DOCU-422 PO; -METF-414 PO; +METO-396 PO; -MIRA25TA PO; -MIRT45TA83 PO; +PHEN100C4 MT; -POTA-354 PO; -TAMS-11 PO; +TAMS-54 PO; +TROS20TA3 PO
[2024-10-25 17:25] VITALS: BP 129/82; PULSE 78; RESP 18; TEMP 36.9; O2SAT 98
== END | disposition left against medical advice (07) ==
LOC: ER 16:54
DX: R60.0 Localized edema (principal); E11.9 Type 2 diabetes mellitus without complications; I50.9 Heart failure, unspecified; Z53.21 Procedure and treatment not carried out due to patient leaving prior to being seen by health care provider; Z98.890 Other specified postprocedural states